=== PATIENT | female | born 1995 | race American Indian/Alaskan Native ===

== ENCOUNTER 2017-08-09 08:05 | Emergency (ER) | payer OTHER ==
[2017-08-09 08:19] VITALS: BP 110/74
--- NOTE | 2017-08-09 09:00 | Emergency Department Report ---
ED General Adult HPI - General Chief complaint: Skin Rash Stated complaint: ITCHING Time Seen by Provider: 08/09/17 08:22 Source: patient Mode of arrival: Ambulatory Limitations: No Limitations - History of Present Illness Initial comments: 22-year-old female presents to the ED complaining about a rash after staying at cousin's house 2 days ago. States that is a papular itchy rash starting in her left arm scattered around her right arm, torso, legs. States that she has been taking Benadryl with no relief. was told that this rash may be scabies by friends who came to the ED. Denies contacts with similar rash - Related Data Previous Rx's Medication Instructions Recorded Last Taken Type Diphenhydramine HCl [Benadryl 25 mg PO Q6HR #20 tablet 07/15/16 Unknown Rx Allergy TAB] Prednisone [predniSONE 10 mg 10 mg PO .TAPER #1 tab.ds.pk 07/15/16 Unknown Rx (6-Day Pack, 21 Tabs)] Ranitidine HCl [Zantac 150 MG TAB] 150 mg PO BID #10 tablet 07/15/16 Unknown Rx Permethrin 5% [Acticin 5% CREAM] 1 applicatio TP ONCE #1 tube 08/09/17 Unknown Rx Allergies Allergy/AdvReac Type Severity Reaction Status Date / Time ciprofloxacin [From Cipro] Allergy Swelling Verified 07/15/16 20:45 ciprofloxacin HCl Allergy Swelling Verified 07/15/16 20:45 [From Cipro] ED Review of Systems ROS: Stated complaint: ITCHING Other details as noted in HPI Constitutional: denies: chills, fever Eyes: denies: eye pain, eye discharge, vision change ENT: denies: ear pain, throat pain Respiratory: denies: cough, shortness of breath, wheezing Cardiovascular: denies: chest pain, palpitations Endocrine: no symptoms reported Gastrointestinal: denies: abdominal pain, nausea, diarrhea Genitourinary: denies: urgency, dysuria, discharge Musculoskeletal: denies: back pain, joint swelling, arthralgia Skin: rash. denies: lesions Neurological: denies: headache, weakness, paresthesias Psychiatric: denies: anxiety, depression Hematological/Lymphatic: denies: easy bleeding, easy bruising ED Past Medical Hx - Past Medical History Previous Medical History?: Yes Hx Headaches / Migraines: Yes Hx Kidney Stones: No Additional medical history: UTI - Surgical History Past Surgical History?: No - Social History Smoking Status: Current Some Day Smoker Substance Use Type: Alcohol, Marijuana, Other - Medications Home Medications: Home Medications Medication Instructions Recorded Confirmed Last Taken Type Diphenhydramine HCl [Benadryl 25 mg PO Q6HR #20 tablet 07/15/16 Unknown Rx Allergy TAB] Prednisone [predniSONE 10 mg 10 mg PO .TAPER #1 tab.ds.pk 07/15/16 Unknown Rx (6-Day Pack, 21 Tabs)] Ranitidine HCl [Zantac 150 MG TAB] 150 mg PO BID #10 tablet 07/15/16 Unknown Rx Permethrin 5% [Acticin 5% CREAM] 1 applicatio TP ONCE #1 tube 08/09/17 Unknown Rx ED Physical Exam - General Limitations: No Limitations General appearance: alert, in no apparent distress - Head Head exam: Present: atraumatic, normocephalic - Eye Eye exam: Present: normal appearance - ENT ENT exam: Present: mucous membranes moist - Neck Neck exam: Present: normal inspection - Respiratory Respiratory exam: Present: normal lung sounds bilaterally. Absent: respiratory distress - Cardiovascular Cardiovascular Exam: Present: regular rate, normal rhythm. Absent: systolic murmur, diastolic murmur, rubs, gallop - GI/Abdominal GI/Abdominal exam: Present: soft, normal bowel sounds - Extremities Exam Extremities exam: Present: normal inspection - Back Exam Back exam: Present: normal inspection - Neurological Exam Neurological exam: Present: alert, oriented X3 - Psychiatric Psychiatric exam: Present: normal affect, normal mood - Skin Skin exam: Present: warm, dry, intact, normal color, rash (stattered papular urticaria seen on left and right slime. no ttp.), other (Scattered papular urticaria seen on the left arm with no tenderness to palpation.) ED Course Vital Signs 08/09/17 08:14 Temperature 98.6 F Pulse Rate 85 Respiratory 20 Rate Blood Pressure 110/74 O2 Sat by Pulse 97 Oximetry ED Medical Decision Making - Medical Decision Making patient rash appears to be bed bug or scabies in origin. will give decadron shot here and start on permethrin. patient VSS for DC. NAd at this time. Critical care attestation.: If time is entered above; I have spent that time in minutes in the direct care of this critically ill patient, excluding procedure time. ED Disposition Clinical Impression: Rash and nonspecific skin eruption, Papular urticaria Disposition: - TO HOME OR SELFCARE Is pt being admited?: No Does the pt Need Aspirin: No Condition: Good Instructions: Scabies (ED) Prescriptions: Permethrin 5% [Acticin 5% CREAM] 1 applicatio TP ONCE #1 tube Referrals: BLOSSOM STEINER MD [Primary Care Provider] - 3-5 Days Forms: Work/School Release Form(ED) Time of Disposition: 09:00
[2017-08-09] MEDS ORDERED: DECADRON IM ONE (09:07)
== END 2017-08-09 09:16 | disposition home or self-care (01) ==
LOC: ED 08:05
DX: L50.8 Other urticaria (principal); R21 Rash and other nonspecific skin eruption; G43.909 Migraine, unspecified, not intractable, without status migrainosus; F17.200 Nicotine dependence, unspecified, uncomplicated; Z88.1 Allergy status to other antibiotic agents
CPT/HCPCS: 96372; 99282; J1100

== ENCOUNTER 2017-09-18 13:35 | Emergency (ER) | payer OTHER ==
[2017-09-18] MEDS ORDERED: DELTASONE PO ONE (17:03)
[2017-09-18] MEDS ORDERED: DUONEB *Not for PRN Use IH ONE (17:03)
--- NOTE | 2017-09-18 17:07 | Emergency Department Report ---
Minor Respiratory - HPI Chief Complaint: Upper Respiratory Infection Stated Complaint: FLU SX Time Seen by Provider: 09/18/17 17:04 Duration: 2 Days Pain Location: Throat, Chest Severity: mild Minor Respiratory: Yes Sore Throat, Yes Able to Tolerate Fluids, Yes Cough, Yes Sick Contacts, No Rhinorrhea, No Ear Pain, No Hemoptysis, No Chest Pain, No Shortness of Breath, No Fever ED Review of Systems ROS: Stated complaint: FLU SX Other details as noted in HPI Comment: All other systems reviewed and negative Constitutional: malaise Respiratory: cough ED Past Medical Hx - Past Medical History Previous Medical History?: Yes Hx Headaches / Migraines: Yes Hx Kidney Stones: No Additional medical history: UTI - Surgical History Past Surgical History?: No - Social History Smoking Status: Never Smoker Substance Use Type: None - Medications Home Medications: Home Medications Medication Instructions Recorded Confirmed Last Taken Type Benzonatate [Tessalon Perles] 100 mg PO Q8HR PRN #20 capsule 09/18/17 Unknown Rx Cephalexin [Keflex] 500 mg PO Q12HR #20 cap 09/18/17 Unknown Rx Fluticasone [Flonase] 1 spray NS QDAY #1 bottle 09/18/17 Unknown Rx predniSONE [Deltasone] 20 mg PO DAILY #5 tablet 09/18/17 Unknown Rx Minor Respiratory Exam - Exam General: Vital signs noted. No distress. Alert and acting appropriately. HEENT: Yes Pharyngeal Erythema, Yes Moist Mucous Membranes, Yes Frontal Tenderness, Yes Maxillary Tenderness, No Pharyngeal Exudates, No Rhinorrhea, No Conjuctival Injection Ear: Neither TM Bulge, Neither TM Erythema, Neither EAC Pain, Neither EAC Discharge Neck: Yes Supple, No Adenopathy Lungs: Yes Good Air Exchange, Yes Wheezes, No Ronchi, No Stridor, No Cough, No Labored Respirations, No Retractions, No Use of Accessory Muscles, No Other Abnormal Lung Sounds Heart: Yes Regular, No Murmur Abdomen: Yes Normal Bowel Sounds, No Tenderness, No Peritoneal Signs Skin: No Rash, No Edema Neurologic: Alert and oriented, no deficits. Musculoskeletal: Unremarkable. ED Course Vital Signs 09/18/17 14:36 Temperature 98.9 F Pulse Rate 108 H Respiratory 16 Rate Blood Pressure 125/79 O2 Sat by Pulse 99 Oximetry - Reevaluation(s) Reevaluation #1: 09/18/17 18:32 She reports feeling better after respiratory treatment and prednisone. However she has a fever 99.9. Motrin will be given by mouth. Discussed with patient discharge plan the care. Patient is alert and oriented nontoxic appearing in no acute distress no shortness of breath no chest pain. ED Medical Decision Making - Medical Decision Making see note - Differential Diagnosis ro influenza; urti Critical care attestation.: If time is entered above; I have spent that time in minutes in the direct care of this critically ill patient, excluding procedure time. ED Disposition Clinical Impression: Bronchitis, Upper respiratory infection Disposition: TO HOME OR SELFCARE Is pt being admited?: No Does the pt Need Aspirin: No Condition: Stable Instructions: Acute Bronchitis (ED) Additional Instructions: rest hydrate well meds as ordered today follow up pcp in 48 hours for recheck xray normal flu negative motrin or tylenol for fever Turns emergency room if you have a fever greater than 100.5 but does not come down with Motrin or Tylenol. For chest pain or shortness of breath. Prescriptions: Benzonatate [Tessalon Perles] 100 mg PO Q8HR PRN #20 capsule PRN Reason: Cough Cephalexin [Keflex] 500 mg PO Q12HR #20 cap Fluticasone [Flonase] 1 spray NS QDAY #1 bottle predniSONE [Deltasone] 20 mg PO DAILY #5 tablet Referrals: BLOSSOM STEINER MD [Primary Care Provider] - 3-5 Days Time of Disposition: 18:01
[2017-09-18] MEDS ORDERED: MOTRIN PO ONE (18:33)
[2017-09-18 18:42] VITALS: BP 126/78
== END 2017-09-18 18:41 | disposition home or self-care (01) ==
LOC: ED 13:35
DX: J40 Bronchitis, not specified as acute or chronic (principal); J06.9 Acute upper respiratory infection, unspecified; G43.909 Migraine, unspecified, not intractable, without status migrainosus
CPT/HCPCS: 87400; 94640; 99283; J7512

== ENCOUNTER 2020-02-07 23:57 | Emergency (ER) | payer BC, OTHER ==
[2020-02-08] MEDS ORDERED: CLINDAMYCIN 300 MG CAP PO ONE (02:02)
[2020-02-08] MEDS ORDERED: SULFAMETHOXAZOLE/TRIMETHOPRIM 800/160MG DS TAB PO ONE (02:02)
[2020-02-08] MEDS ORDERED: ONDANSETRON 4 MG ODT TAB PO ONE (02:02)
[2020-02-08] MEDS ORDERED: HYDROcodone/ACETAMINOPHEN 7.5-325MG TAB PO ONE (02:02)
--- NOTE | 2020-02-08 03:07 | Emergency Department Report ---
ED General Adult HPI - General Chief complaint: Skin/Abscess/Foreign Body Stated complaint: DRAINING BOIL BETWEEN BUTT,HOT TO TOUCH Source: patient Mode of arrival: Ambulatory Limitations: No Limitations - History of Present Illness Initial comments: Patient is a 24-year-old -[place] female with no past medical history presents to the ED with complaint of acute onset persistent painful swollen erythematous maculopapular rash with purulent discharge on pilonidal area of the buttocks for the last 1 week, worse in the last 2 days. Patient states that the rash started draining in the last 2 days slowly but got worse in the last 12 hours. Patient states that the pain has worsened in the last 12 hours. Patient denies nausea, vomiting, dizziness, fever, chills, abdominal pain, abdominal pain, cough, chest pain, shortness of breath, traumatic injury, low back pain, numbness and tingling or weakness of lower extremities bilaterally, urinary or bowel incontinence or saddle paresthesia. MD Complaint: painful swollen draining rash on buttock -: Sudden, days(s) (2) Location: buttocks Radiation: non-radiation Severity scale (0 -10): 8 Quality: aching, sharp Consistency: constant Improves with: none Worsens with: movement Associated Symptoms: denies other symptoms, rash (Swollen painful mildly erythematous maculopapular rash on pilonidal area with purulent discharge). denies: confusion, chest pain, cough, diaphoresis, fever/chills, headaches, loss of appetite, malaise, nausea/vomiting, seizure, shortness of breath, syncope, weakness Treatments Prior to Arrival: NSAID - Related Data Previous Rx's Medication Instructions Recorded Last Taken Type Benzonatate [Tessalon Perles] 100 mg PO Q8HR PRN #20 capsule 09/18/17 Unknown Rx Fluticasone [Flonase] 1 spray NS QDAY #1 bottle 09/18/17 Unknown Rx cephALEXin [Keflex] 500 mg PO Q12HR #20 cap 09/18/17 Unknown Rx predniSONE [Deltasone] 20 mg PO DAILY #5 tablet 09/18/17 Unknown Rx Acetaminophen/Codeine [Tylenol 1 tab PO Q6H PRN #12 tab 02/08/20 Unknown Rx /Codeine # 3 tab] Clindamycin [Clindamycin CAP] 300 mg PO Q8HR #60 capsule 02/08/20 Unknown Rx Ibuprofen [Motrin] 800 mg PO Q8HR PRN #30 tablet 02/08/20 Unknown Rx Ondansetron [Zofran Odt] 4 mg PO Q6HR PRN #15 tab.rapdis 02/08/20 Unknown Rx Sulfamethoxazole/Trimethoprim 1 each PO Q12H #20 tablet 02/08/20 Unknown Rx [Bactrim DS TAB] Allergies Allergy/AdvReac Type Severity Reaction Status Date / Time ciprofloxacin [From Cipro] Allergy Swelling Verified 07/15/16 20:45 ciprofloxacin HCl Allergy Swelling Verified 07/15/16 20:45 [From Cipro] ED Review of Systems ROS: Stated complaint: DRAINING BOIL BETWEEN BUTT,HOT TO TOUCH Other details as noted in HPI Constitutional: denies: chills, fever Eyes: denies: eye pain, eye discharge, vision change ENT: denies: ear pain, throat pain Respiratory: denies: cough, shortness of breath, wheezing Cardiovascular: denies: chest pain, palpitations Endocrine: no symptoms reported Gastrointestinal: denies: abdominal pain, nausea, diarrhea Genitourinary: denies: urgency, dysuria, discharge Musculoskeletal: denies: back pain, joint swelling, arthralgia Skin: rash (Erythematous maculopapular rash on pilonidal area with purulent discharge and pain), change in color, other (painful swollen erythematous rash on pilonidal area with purulent discharge). denies: lesions Neurological: denies: headache, weakness, paresthesias Psychiatric: denies: anxiety, depression Hematological/Lymphatic: denies: easy bleeding, easy bruising ED Past Medical Hx - Past Medical History Previous Medical History?: Yes Hx Diabetes: Yes (Gestational) Hx Headaches / Migraines: Yes Hx Kidney Stones: No Additional medical history: UTI - Surgical History Past Surgical History?: No - Social History Smoking Status: Never Smoker Substance Use Type: Marijuana - Medications Home Medications: Home Medications Medication Instructions Recorded Confirmed Last Taken Type Benzonatate [Tessalon Perles] 100 mg PO Q8HR PRN #20 capsule 09/18/17 Unknown Rx Fluticasone [Flonase] 1 spray NS QDAY #1 bottle 09/18/17 Unknown Rx cephALEXin [Keflex] 500 mg PO Q12HR #20 cap 09/18/17 Unknown Rx predniSONE [Deltasone] 20 mg PO DAILY #5 tablet 09/18/17 Unknown Rx Acetaminophen/Codeine [Tylenol 1 tab PO Q6H PRN #12 tab 02/08/20 Unknown Rx /Codeine # 3 tab] Clindamycin [Clindamycin CAP] 300 mg PO Q8HR #60 capsule 02/08/20 Unknown Rx Ibuprofen [Motrin] 800 mg PO Q8HR PRN #30 tablet 02/08/20 Unknown Rx Ondansetron [Zofran Odt] 4 mg PO Q6HR PRN #15 tab.rapdis 02/08/20 Unknown Rx Sulfamethoxazole/Trimethoprim 1 each PO Q12H #20 tablet 02/08/20 Unknown Rx [Bactrim DS TAB] ED Physical Exam - General Limitations: No Limitations General appearance: alert, in no apparent distress - Head Head exam: Present: atraumatic, normocephalic, normal inspection - Eye Eye exam: Present: normal appearance, PERRL, EOMI Pupils: Present: normal accommodation - ENT ENT exam: Present: normal exam, normal orophraynx, mucous membranes moist, TM's normal bilaterally, normal external ear exam - Neck Neck exam: Present: normal inspection, full ROM. Absent: tenderness, lymphadenopathy - Respiratory Respiratory exam: Present: normal lung sounds bilaterally. Absent: respiratory distress, wheezes, rales, rhonchi, chest wall tenderness, accessory muscle use, decreased breath sounds, prolonged expiratory - Cardiovascular Cardiovascular Exam: Present: regular rate, normal rhythm, normal heart sounds. Absent: systolic murmur, diastolic murmur, rubs, gallop - GI/Abdominal GI/Abdominal exam: Present: soft, normal bowel sounds. Absent: tenderness, guarding, hyperactive bowel sounds, hypoactive bowel sounds - Rectal Rectal exam: Present: tenderness (Palpable severe tenderness of pilonidal area due to mildly erythematous maculopapular rash with thick purulent discharge), other (Female RN touch up carver present Ms. Srinivasan) - Extremities Exam Extremities exam: Present: normal inspection, full ROM, normal capillary refill. Absent: tenderness, pedal edema, joint swelling, calf tenderness - Back Exam Back exam: Present: normal inspection, full ROM. Absent: tenderness, CVA tenderness (L), muscle spasm, paraspinal tenderness, vertebral tenderness - Neurological Exam Neurological exam: Present: alert, oriented X3, CN II-XII intact, normal gait, reflexes normal - Psychiatric Psychiatric exam: Present: normal affect, normal mood - Skin Skin exam: Present: warm, dry, intact, normal color, rash (Erythematous maculopapular rash on pilonidal area with thick purulent discharge and tenderness), erythema ED Course Vital Signs 02/08/20 02/08/20 00:02 03:58 Temperature 98.9 F 98.7 F Pulse Rate 95 H 84 Respiratory 20 18 Rate Blood Pressure 111/66 Blood Pressure 114/68 [Left] O2 Sat by Pulse 97 100 Oximetry ED Medical Decision Making - Medical Decision Making This is a 24-year-old -[place] female with no past medical history presents to the ED with complaint of acute onset persistent painful swollen erythematous maculopapular rash with purulent discharge on pilonidal area of the buttocks for the last 1 week, worse in the last 2 days. Patient states that the rash started draining in the last 2 days slowly but got worse in the last 12 hours. Patient states that the pain has worsened in the last 12 hours. In the ED, patient is alert and oriented x3 and is not in distress but appears to be in significant pain. Patient was treated for pain in the ED and even initial oral antibiotics. The wound in the pilonidal area was cleaned thoroughly and dressed appropriately with 4 x 4 gauze and Tegaderm. On reevaluation, patient's pain is well controlled medication. Patient will discharge home on pain medication and oral antibiotics and advised to follow-up with her primary care physician in 7 to 10 days for reevaluation or return to the ED immediately if symptoms get worse. - Differential Diagnosis cellulitis; pilonidal abscess; folliculitis Critical care attestation.: If time is entered above; I have spent that time in minutes in the direct care of this critically ill patient, excluding procedure time. ED Disposition Clinical Impression: Abscess and cellulitis of gluteal region, Pilonidal abscess of cleft Disposition: DC- TO HOME OR SELFCARE Is pt being admited?: No Does the pt Need Aspirin: No Condition: Stable Instructions: Cellulitis (ED), Abscess (ED) Additional Instructions: Take medication with food, drink plenty of fluids and follow-up with your primary care physician in 7 to 10 days for reevaluation. Return to the ED immediately if symptoms get worse. Prescriptions: Sulfamethoxazole/Trimethoprim [Bactrim DS TAB] 1 each PO Q12H #20 tablet Clindamycin [Clindamycin CAP] 300 mg PO Q8HR #60 capsule Ibuprofen [Motrin] 800 mg PO Q8HR PRN #30 tablet PRN Reason: Pain , Severe (7-10) Acetaminophen/Codeine [Tylenol /Codeine # 3 tab] 1 tab PO Q6H PRN #12 tab PRN Reason: Pain , Severe (7-10) Ondansetron [Zofran Odt] 4 mg PO Q6HR PRN #15 tab.rapdis PRN Reason: Nausea Referrals: [facility] [Provider Group] - 7-10 days [facility] [place] [Outside] - 7-10 days Forms: Work/School Release Form(ED) Time of Disposition: 03:05 Print Language: FAROESE
[2020-02-08 04:00] VITALS: BP 114/68
== END 2020-02-08 03:58 | disposition home or self-care (01) ==
LOC: ED 23:57
DX: L05.91 Pilonidal cyst without abscess (principal); E11.9 Type 2 diabetes mellitus without complications; G43.909 Migraine, unspecified, not intractable, without status migrainosus; F12.10 Cannabis abuse, uncomplicated; Z79.899 Other long term (current) drug therapy; Z88.1 Allergy status to other antibiotic agents
CPT/HCPCS: Q0162